=== PATIENT | male | born 1990 | race African-American/Black ===

== ENCOUNTER 2021-08-10 17:21 | Emergency (ER) | payer SELFPAY ==
[~2021-08-10] VITALS: Ht 188 cm; Wt 84.1 kg
[~2021-08-10 17:21] MED LIST: CEPHALEXIN500 M1 PO; NORCO 325 MG-51 TAB PO
[2021-08-10 17:28] VITALS: TEMP 97.2
[2021-08-10] MEDS ORDERED: FLEXERIL 1010 MG/TAB PO (18:50)
[2021-08-10 19:14] VITALS: BP 184/116; PULSE 74
== END 2021-08-10 19:14 | disposition home or self-care (01) ==
LOC: COL.ER 17:21
DX: M62.838 Other muscle spasm (principal)
CPT/HCPCS: J1885; J2360